=== PATIENT | female | born 1935 | race Caucasian/White ===

== ENCOUNTER 2016-11-01 02:36 | Emergency (ER) | payer MEDICARE, OTHER ==
[2016-11-01] MEDS ORDERED: SODIUM CHLORIDE 0.9% (FLUSH) 10 ML SYG IV PRN (02:55)
--- NOTE | 2016-11-01 03:02 | ED.PDOC ---
History of Present Illness - General Chief Complaint: GI Problem Stated Complaint: noted vomit in blood Time Seen by Provider: 11/01/16 02:55 Source: RN notes reviewed, Vital Signs reviewed, EMS, group home records, other - Hospice nurse Exam Limitations: other - dementia - severe - History of Present Illness Initial Comments: Patient is an 80 y/o patient sent by the group home because of GI bleeding. Patient has dementia and is on hospice. She threw up three times, and the third time she had bright red blood in the vomitus. I am unable to get a good history because of Patient's mental status, however she does not complain of pain and does not act as if she has pain, although her abdomen is tight. Timing/Duration: 1-3 hours - Last threw up at about midnight Severity: moderate Allergies/Adverse Reactions: Allergies NO KNOWN ALLERGY Allergy (Verified 11/01/16 03:36) Home Medications: Ambulatory Orders ALPRAZolam [Xanax] 0.25 mg PO Q6H PRN 08/14/15 Acetaminophen [Tylenol] 1 - 2 each PO Q6H PRN 08/14/15 Cetirizine HCl [ZyrTEC] 10 mg PO DAILY PRN 08/14/15 Donepezil Hydrochloride [Aricept] 10 mg PO BEDTIME 08/14/15 Ibuprofen [Motrin] 400 mg PO BID PRN 08/14/15 Memantine HCl [Namenda] 10 mg PO BID 08/14/15 Olanzapine [Zyprexa] 10 mg PO BEDTIME 08/14/15 Polyethylene Glycol 3350 [Miralax] 17 gm PO BEDTIME 08/14/15 Trazodone HCl 100 mg PO BEDTIME 08/14/15 Amitriptyline HCl [Elavil] mg PO BEDTIME 11/01/16 Carvedilol [Coreg] 6.25 mg PO 11/01/16 Review of Systems - Review of Systems Constitutional: Denies: chills, fever Gastrointestinal/Abdominal: States: vomiting. Denies: abdominal pain Neurological: States: other - dementia Unable to Obtain Due To: dementia Past Medical History (General) - Patient Medical History Hx Stroke: No Hx Dementia: Yes - Alzheimer's Hx Cardiac Disorders: Yes Hx Congestive Heart Failure: No Hx Diabetes: No - Vaccination History Hx Tetanus, Diphtheria Vaccination: Yes Hx Influenza Vaccination: - unknown - Social History Hx Tobacco Use: No - Female History Patient : No Family Medical History - Family History Mother Family History: Unknown Living Status: Physical Exam - Physical Exam General Appearance: Alert, No apparent distress Ears, Nose, Throat: hearing grossly normal Respiratory: lungs clear, normal breath sounds, no respiratory distress, no accessory muscle use Cardiovascular/Chest: regular rate, rhythm, no edema, no gallop, no murmur Gastrointestinal/Abdominal: normal bowel sounds, non tender, no organomegaly, no pulsatile mass, other - mild tightness Back Exam: normal inspection, no CVA tenderness Extremity: non-tender, normal inspection, no pedal edema Neurologic: alert, disoriented x 3 Skin Exam: normal color, warm/dry Progress - Progress Progress: 11/01/16 04:47 Patient had no more episodes of vomiting in the ED. Her WBCs are mildly elevated with a left shift. I believe patient has a gastroenteritis and most likely had some esophageal bleeding after she threw up the third time. I will send Patient back to the group home with strict instructions to control vomiting with promethazine or ondansetron. 11/01/16 05:38 - Results/Orders Results/Orders: 11/01/16 11/01/16 11/01/16 02:53 03:57 04:08 Temperature 98.4 F Pulse Rate [ 108 H 112 H 101 H left] Respiratory 18 18 18 Rate Blood Pressure 158/68 108/45 [left] O2 Sat by Pulse 97 97 97 Oximetry 11/01/16 02:55 Sodium Chloride 0.9% (Flush) [Saline Flush Syringe] 10 ml IV PRN PRN 11/01/16 02:56 IV Care:Saline Lock per Protoc QSHIFT 11/01/16 03:00 EKG STAT 11/01/16 02:55 Sodium Chloride 0.9% (Flush) [Saline Flush Syringe] 10 ml IV PRN PRN 11/01/16 02:56 IV Care:Saline Lock per Protoc QSHIFT 11/01/16 03:00 EKG STAT Laboratory Results WBC 12.7 K/mm3 (4.8-10.8) H 11/01/16 02:56 RBC 4.50 M/mm3 (4.20-5.40) 11/01/16 02:56 Hgb 13.5 gm/dL (12.0-16.0) 11/01/16 04:50 Hct 40.7 % (36.0-47.0) 11/01/16 04:50 MCV 93.4 fl (81.0-99.0) 11/01/16 02:56 MCH 30.9 pg (27.0-31.0) 11/01/16 02:56 MCHC 33.1 g/dL (33.0-37.0) 11/01/16 02:56 RDW 13.8 % (11.5-14.5) 11/01/16 02:56 Plt Count 174 K/mm3 (130-400) 11/01/16 02:56 MPV 9.2 fl (7.40-10.4) 11/01/16 02:56 Absolute Neuts (auto) 10.00 K/uL (1.8-6.8) H 11/01/16 02:56 Absolute Lymphs (auto) 1.80 K/uL (1.0-3.4) 11/01/16 02:56 Absolute Monos (auto) 0.60 K/uL (0.2-0.8) 11/01/16 02:56 Absolute Eos (auto) 0.20 K/uL (0.0-0.4) 11/01/16 02:56 Absolute Basos (auto) 0.00 K/uL (0.0-0.1) 11/01/16 02:56 Neutrophils % 79.2 % (42.0-78.0) H 11/01/16 02:56 Lymphocytes % 14.1 % (20.0-50.0) L 11/01/16 02:56 Monocytes % 5.0 % (2.0-9.0) 11/01/16 02:56 Eosinophils % 1.3 % (1.0-5.0) 11/01/16 02:56 Basophils % 0.4 % (0.0-2.0) 11/01/16 02:56 PT 11.9 SECONDS (9.4-12.5) 11/01/16 02:56 INR 1.050 11/01/16 02:56 PTT (SP) 35.3 SECONDS (25.1-36.5) 11/01/16 02:56 Sodium 144 mmol/L (135-145) 11/01/16 02:56 Potassium 3.7 mmol/L (3.6-5.0) 11/01/16 02:56 Chloride 110 mmol/L (101-111) 11/01/16 02:56 Carbon Dioxide 25 mmol/L (21-31) 11/01/16 02:56 Anion Gap 12.7 (12-18) 11/01/16 02:56 BUN 26 mg/dL (7-18) H 11/01/16 02:56 Creatinine 1.05 mg/dL (0.6-1.3) 11/01/16 02:56 BUN/Creatinine Ratio 24.8 (10-20) H 11/01/16 02:56 Random Glucose 112 mg/dL (70-105) H 11/01/16 02:56 Serum Osmolality 292.3 mOsm/L (275-295) 11/01/16 02:56 Calcium 8.7 mg/dL (8.4-10.2) 11/01/16 02:56 Amylase 51 U/L (28-100) 11/01/16 02:56 Lipase 17 U/L (22-51) L 11/01/16 02:56 Departure - Departure Clinical Impression: Gastroenteritis, Esophageal bleeding Time of Disposition: 05:39 Disposition: Discharge to SNF Condition: Good Departure Forms: ED Discharge - Pt. Copy, Patient Portal Self Enrollment Diet: bland diet Referrals: Homar Harris MD [Primary Care Provider] - 1-2 Days Home Medications: Ambulatory Orders ALPRAZolam [Xanax] 0.25 mg PO Q6H PRN 08/14/15 Acetaminophen [Tylenol] 1 - 2 each PO Q6H PRN 08/14/15 Cetirizine HCl [ZyrTEC] 10 mg PO DAILY PRN 08/14/15 Donepezil Hydrochloride [Aricept] 10 mg PO BEDTIME 08/14/15 Ibuprofen [Motrin] 400 mg PO BID PRN 08/14/15 Memantine HCl [Namenda] 10 mg PO BID 08/14/15 Olanzapine [Zyprexa] 10 mg PO BEDTIME 08/14/15 Polyethylene Glycol 3350 [Miralax] 17 gm PO BEDTIME 08/14/15 Trazodone HCl 100 mg PO BEDTIME 08/14/15 Amitriptyline HCl [Elavil] mg PO BEDTIME 11/01/16 Carvedilol [Coreg] 6.25 mg PO 11/01/16 Additional Instructions: Return for any additional vomiting blood.
[2016-11-01 03:20] VITALS: O2SAT 97
[2016-11-01 05:58] VITALS: BP 142/79; TEMP 97.8
== END 2016-11-01 05:57 ==
LOC: ER 02:36
DX: K52.9 Noninfective gastroenteritis and colitis, unspecified (principal); K22.8 Other specified diseases of esophagus; G30.9 Alzheimer's disease, unspecified; F02.80 Dementia in other diseases classified elsewhere, unspecified severity, without behavioral disturbance, psychotic disturbance, mood disturbance, and anxiety; Z79.899 Other long term (current) drug therapy

== ENCOUNTER → 2016-11-20 | Outpatient (CLI) | payer OTHER | END | disposition home or self-care (01) | LOC: SOLHO 09:25 | PROVIDERS: ATTEND Family Medicine | DX: R53.81 Other malaise (principal); I10 Essential (primary) hypertension; R60.9 Edema, unspecified; I25.10 Atherosclerotic heart disease of native coronary artery without angina pectoris; N39.0 Urinary tract infection, site not specified ==